=== PATIENT | male | born 2000 | race Hispanic/Latino ===

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

== ENCOUNTER 2020-09-29 01:44 | Emergency (ER) | payer MEDICAID, SELFPAY | END 2020-09-29 03:05 | disposition home or self-care (01) | LOC: ERS 01:44 | DX: R68.83 Chills (without fever) (principal); F17.210 Nicotine dependence, cigarettes, uncomplicated | CPT/HCPCS: 99283 ==